=== PATIENT | female | born 1975 ===

== ENCOUNTER 2018-07-05 14:26 | Outpatient (CLI) | payer OTHER | END 2018-07-05 14:27 | disposition home or self-care (01) | LOC: C.LAB 14:26 ==

== ENCOUNTER 2018-07-31 09:36 | Outpatient (CLI) | payer OTHER | END 2018-07-31 09:37 | disposition home or self-care (01) | LOC: C.MAMMO 09:36 | DX: R92.2 Inconclusive mammogram (principal) ==